=== PATIENT | male | born 1950 | race Caucasian/White ===

== ENCOUNTER 2017-04-06 23:10 | Emergency (ER) | payer MEDICARE, MEDICAID ==
[~2017-04-06] VITALS: Ht 172.7 cm; Wt 52.8 kg
[2017-04-06 23:11] VITALS: BP 134/83
[2017-04-06] MEDS ORDERED: OXYcodone/APAP 5/325MG TABLET ONE (23:40)
[2017-04-07] MEDS ORDERED: OXYcodone/APAP 5/325MG TABLET PO ONE
== END 2017-04-07 01:34 | disposition home or self-care (01) ==
LOC: ED 23:59
DX: G89.29 Other chronic pain (principal); M25.512 Pain in left shoulder; G89.18 Other acute postprocedural pain; M25.552 Pain in left hip; M25.551 Pain in right hip; R93.8 Abnormal findings on diagnostic imaging of other specified body structures; F17.200 Nicotine dependence, unspecified, uncomplicated; J44.9 Chronic obstructive pulmonary disease, unspecified; Z96.642 Presence of left artificial hip joint
CPT/HCPCS: 71010; 99284